=== PATIENT | male | born 1980 | race Caucasian/White ===

== ENCOUNTER 2018-10-14 13:26 | Inpatient (IN) ==
[2018-10-14] MEDS ORDERED: IOPAMIDOL 100 ML BOTTLE IV ONE (13:27)
[2018-10-14] MEDS ORDERED: LACTATED RINGERS 1,000 ML IV ONE ×2 (14:34→19:11)
[2018-10-14] MEDS ORDERED: VANCOMYCIN 1,000 MG in 0.9 % SODIUM CHLORIDE 250 ML IV ONE (14:34)
[2018-10-14] MEDS ORDERED: PIPERACILLIN SODIUM/TAZOBACTAM 3.375 GM in DEXTROSE 5% IN WATER 50 ML IV ONE (14:34)
--- NOTE | 2018-10-14 14:41 | Emergency Department Note ---
Weakness HPI - General Chief complaint: Weakness Stated complaint: Sepsis, positive blood cultures Time Seen by Provider: 10/14/18 14:34 Source: patient Mode of arrival: ambulatory Limitations: no limitations - History of Present Illness HPI Narrative: Patient was seen on 10/12/18 for cellulitis of his left hand and wrist secondary to IV drug abuse was to be admitted for sepsis and thrombocytopenia. The haircutter was consulted and he would consult. Patient however signed out AMA he was to be admitted to [facility]. Blood cultures came back positive for gram-positive [employer] and we did a call out TO POLICE and he has returned. Patient was given Zosyn and vancomycin . rates the pain in his arm is a 10/10. His vancomycin is being given at this timeTemperature is 97.9 the pulse initially 111 has come down to 99 respiratory rate 16 blood pressure is 100/57 pulse ox is breathing at 97% rates the pain is a 10/10. Patient now states he is willing to be admitted - Related Data Home Medications Medication Instructions Recorded Confirmed No Known Home Meds 10/12/18 10/14/18 Allergies Allergy/AdvReac Type Severity Reaction Status Date / Time meperidine [From Demerol] Allergy Unknown Verified 10/14/18 13:27 Review of Systems All systems ED: reviewed and negative except as stated. Constitutional: Reports: fever, chills Gastrointestinal: Reports: abdominal pain Musculoskeletal: Reports: as per HPI, joint swelling (Left arm wrist), joint pain Neurological: Reports: weakness Past Medical History - Past Medical History [facility] Narrative: All Active Problems Cellulitis (Acute) Hyponatremia (Acute) Sepsis (Acute) Thrombocytopenia (Acute) Surgical history ED: Reports: appendectomy Family history: Reports: non-contributory - Social History smoking status: Former smoker Alcohol use: Reports: Occasionally Drug use: Reports: marijuana, methamphetamine, IVDU Physical Exam Limitations: no limitations General appearance: lethargic Head: atraumatic, normocephalic Eye: Present: normal appearance, PERRL ENT: normal exam, normal oropharynx, mucous membranes dry Neck: Present: normal inspection, full ROM, trachea midline Chest: Present: normal inspection, symmetric chest wall rise. Absent: tenderness Respiratory: Present: normal lung sounds bilaterally. Absent: respiratory distress, rales/crackles, wheezes Cardiovascular: Present: regular rate, normal rhythm Abdominal: Present: tenderness, normal bowel sounds. Absent: guarding, rebound , rigidity Shoulder: Present: normal inspection, full ROM Arm: Present: normal inspection, full ROM Elbow: Present: normal inspection, full ROM Forearm/Wrist: Present: tenderness (Left), swelling Hand: Present: tenderness (Left) Back: Present: normal inspection, full ROM Neurological: Present: alert, oriented X3, CN II-XII intact. Absent: motor sensory deficit Patient oriented to: Present: person, place, time Speech: Present: fluid speech Cranial nerves: EOM function (II, III, IV, ): Normal, facial sensation (V): Normal, facial palsy (VII): Normal, gag reflex (IX): Normal, spinal accessory function (XI): Normal, tongue deviation (XII): Normal Cerebellar function: finger to nose: Normal Motor strength - LUE: 5/5 Motor strength - RUE: 5/5 Motor strength - LLE: 5/5 Motor strength - RLE: 5/5 Upper motor neuron exam: Babinski sign: Absent bilaterally Sensory exam upper extremity: Normal: light touch Sensory exam lower extremity: Normal: light touch DTR: 2+: triceps (L), triceps (R) Psychiatric: Present: normal affect Course Vital Signs Temperature 97.9 F 10/14/18 13:27 Pulse Rate 111 H 10/14/18 13:27 Respiratory Rate 16 10/14/18 13:27 Blood Pressure 100/57 10/14/18 13:27 Pulse Oximetry (%) 97 10/14/18 13:27 Temperature 97.9 F 10/14/18 13:27 Pulse Rate 90 10/14/18 16:50 Respiratory Rate 17 10/14/18 16:50 Blood Pressure 95/58 10/14/18 16:50 Pulse Oximetry (%) 93 10/14/18 16:50 Weakness - MDM Narrative Medical decision making narrative: WBC of 6200 his platelet count is estimated to be approximately 50,000 increase him to 35,000 seen 2 days ago lactic is come down to 2.0 it was 3.82 days ago. Sodium is 126 it was 120 previously his liver function tests are normal but his alkaline phosphatase is 124. CT of the abdomen shows hepatosplenomegaly but no abscess been told resulted in patient to be admitted with diagnosis sepsis patient admits to IV drug abuse - Lab Data Result diagrams: 10/14/18 15:26 10/14/18 14:15 Lab Results 10/14/18 10/14/18 10/14/18 Range/Units 14:15 14:15 14:15 WBC TNP RBC TNP Hgb TNP Hct TNP MCV TNP MCH TNP MCHC TNP RDW TNP Plt Count TNP MPV TNP Total Counted TNP Seg Neutrophils % (38-78) % Band Neutrophils % Not Reportable Lymphocytes % (15-49) % Monocytes % (Manual) (1-12) % Eosinophils % (Manual) (0-7) % WBC Morphology (NORMAL) Vacuolated Neuts (NONE SEEN) Toxic Granulation (NONE SEEN) Platelet Estimate TNP RBC Morphology TNP VBG Lactic Acid (0.5-2.0) mmol/L Sodium 126 L (133-145) mmol/L Potassium 3.8 (3.3-5.1) mmol/L Chloride 90 L (96-108) mmol/L Carbon Dioxide 24 (22-30) mmol/L Anion Gap 12.0 (8-16) BUN 15 (6-20) mg/dl Creatinine 0.7 (0.7-1.2) mg/dl GFR Calculation 121 Glucose 140 H (70-105) mg/dL Calcium 7.8 L (8.6-10.4) mg/dl Total Bilirubin 0.8 (0.0-1.0) mg/dL AST 17 (0-37) U/l ALT 10 (0-40) U/l Alkaline Phosphatase 124 H (39-117) U/L Total Protein 5.3 L (5.9-8.4) gm/dL Albumin 2.3 L (3.2-5.2) gm/dL Globulin 3.0 (2.2-3.7) gm/dL Albumin/Globulin Ratio 0.8 L (1.0-2.3) Urine Color Urine Appearance Urine pH (5.0-9.0) Ur Specific [place] (1.000-1.035) Urine Protein (NEG) mg/dL Urine Glucose (UA) (NEG) mg/dL Urine Ketones (NEG) mg/dL Urine Occult Blood (<0.03) mg/dL Urine Nitrate (NEG) Urine Bilirubin (NEG) mg/dL Urine Urobilinogen (NEG) mg/dL Ur Leukocyte Esterase (NEG) /uL Urine RBC (0-1) /hpf Urine WBC (0-4) /hpf Ur Squamous Epith Cells (0-4) /hpf Urine Bacteria (0) /hpf Urine Mucus (0) /hpf Ur Culture Indicated? 10/14/18 10/14/18 10/14/18 Range/Units 14:30 15:11 15:26 WBC 6.2 RBC 3.14 L Hgb 9.1 L Hct 27.0 L MCV 86.2 MCH 29.0 MCHC 33.6 RDW 14.3 Plt Count TNP MPV 10.8 H Total Counted 100 Seg Neutrophils % 86 H (38-78) % Band Neutrophils % 9 Lymphocytes % 2 L (15-49) % Monocytes % (Manual) 1 (1-12) % Eosinophils % (Manual) 2 (0-7) % WBC Morphology Abnorm A (NORMAL) Vacuolated Neuts 1+ A (NONE SEEN) Toxic Granulation 1+ A (NONE SEEN) Platelet Estimate Decreased A RBC Morphology Normal VBG Lactic Acid 2.0 (0.5-2.0) mmol/L Sodium (133-145) mmol/L Potassium (3.3-5.1) mmol/L Chloride (96-108) mmol/L Carbon Dioxide (22-30) mmol/L Anion Gap (8-16) BUN (6-20) mg/dl Creatinine (0.7-1.2) mg/dl GFR Calculation Glucose (70-105) mg/dL Calcium (8.6-10.4) mg/dl Total Bilirubin (0.0-1.0) mg/dL AST (0-37) U/l ALT (0-40) U/l Alkaline Phosphatase (39-117) U/L Total Protein (5.9-8.4) gm/dL Albumin (3.2-5.2) gm/dL Globulin (2.2-3.7) gm/dL Albumin/Globulin Ratio (1.0-2.3) Urine Color Yellow Urine Appearance Hazy Urine pH 6.0 (5.0-9.0) Ur Specific [place] 1.012 (1.000-1.035) Urine Protein Neg (NEG) mg/dL Urine Glucose (UA) Negative (NEG) mg/dL Urine Ketones Neg (NEG) mg/dL Urine Occult Blood 0.03 A (<0.03) mg/dL Urine Nitrate Neg (NEG) Urine Bilirubin Neg (NEG) mg/dL Urine Urobilinogen 4.0 A (NEG) mg/dL Ur Leukocyte Esterase Neg (NEG) /uL Urine RBC < 1 (0-1) /hpf Urine WBC 4 (0-4) /hpf Ur Squamous Epith Cells < 1 (0-4) /hpf Urine Bacteria Few A (0) /hpf Urine Mucus Few (0) /hpf Ur Culture Indicated? Yes Disposition Pt seen by ENGRAVER RUBBER/PA only: No Clinical Impression: Sepsis Qualifiers: Sepsis type: methicillin susceptible Staphylococcus aureus Qualified Code(s): A41.01 - Sepsis due to Methicillin susceptible Staphylococcus aureus Disposition: Xfer As Inpt ([facility]) Condition: Serious Referrals: No,PCP [Primary Care Provider] - Time of Disposition: 17:00
[2018-10-14] MEDS ORDERED: 0.9 % SODIUM CHLORIDE 1,000 ML IV ONE ×3 (14:49→16:53)
--- NOTE | 2018-10-14 14:50 | XRay Report ---
CLINICAL INFORMATION: Chest pain COMPARISON: 10/12/2018 FINDINGS: The heart size, mediastinum and pulmonary vessels are unremarkable. Mild bibasilar atelectasis noted. No sonny infiltrate. There are small bilateral pleural effusions. The bones and soft tissues are within normal limits. IMPRESSION: Minor bibasilar atelectasis. Small bilateral pleural effusions Interpreted and Authenticated by: Modesto Fischer 10/14/18
[2018-10-14] MEDS ORDERED: ONDANSETRON 4 MG/2 ML VIAL IV ONE (14:51)
[2018-10-14] MEDS: HYDROmorphone 2 MG/ML VIAL IV PRN ×2 (14:59→15:39)
[2018-10-14 15:26] LABS: ALT/SGPT 10 U/l (0-40); Albumin 2.3 gm/dL (3.2-5.2); Albumin/Globulin Ratio 0.8 (1.0-2.3); Alkaline Phosphatase 124 U/L (39-117); Blood Urea Nitrogen 15 mg/dl (6-20)
[2018-10-14 15:41] LABS: Appearance,Urine HAZY; Bacteria,Urine FEW /hpf (0); Bilirubin,Urine NEG (NEG); Color,Urine YELLOW; Glucose,Urine (UA) NEGATIVE (NEG); Leukocyte Esterase,Urine NEG /uL (NEG); Mucus,Urine FEW /hpf (0); Protein,Urine NEG (NEG); Specific Gravity,Urine 1.012 (1.000-1.035); Urine Blood 0.03 mg/dL (<0.03); Urine RBC < 1 /hpf (0-1); Urine Squamous Epithelial Cell < 1 /hpf (0-4); Urine WBC 4 /hpf (0-4)
[2018-10-14] MEDS ORDERED: HYDROmorphone 2 MG/ML VIAL IV ONE (16:19)
[2018-10-14 16:48] LABS: Band Neutrophils % 9 % (0-10); Eosinophils % (Manual) 2 % (0-7); Lymphocytes % 2 % (15-49); Monocytes % (Manual) 1 % (1-12); Platelet Estimate DECREASED (NORMAL); RBC Morphology NORMAL (NORMAL); Segmented Neutrophils % 86 % (38-78); Toxic Granulation 1+ (NONE SEEN)
[2018-10-14 16:49] LABS: Mean Cell Volume 86.2 fL (80.0-100.0); Mean Corpuscular HGB Conc 33.6 g/dL (31.0-36.0); RBC 3.14 M/mcL (4.50-5.90); Red Cell Distribution Width 14.3 % (11.5-14.5)
[2018-10-14] MEDS ORDERED: KETOROLAC 30 MG/ML VIAL IV ONE ×2 (17:21→19:11)
--- NOTE | 2018-10-14 17:52 | Internal Med History&Physical ---
Medical - H&P: HPI Patient information: Note initiated : 10/14/18 at 5:39 pm Service Date, if different from initiated Date: [] Patient: Juan Carlos Phan a 38 y/o M admitted on for Sepsis, positive blood cultures. Chief Complaint: [] History of present illness: Mr. Phan is a 38 year old M with h/o IVDA who presents to the ER after being called back to the ER for positive blood cultures The patient presented to the ER on the 12 of october, the patient had pain and redness on the left hand at that time, the patient blood work in the ER showed low platlets, wbc normal, elevated lactic acid, low sodium, he was had meth, opiates in his UDS, the patient was asked to be admitted to the hospital. He was given vanco and zosyn and was to be admitted at [facility] as he had platelet count of 24K (we do not have a piston maker here) The patient signed out AMA His blood cultures 2 bottles grew staph aureus and he was asked to come back to the hospital The patient admits to using heroin, he has now pain in the right side of the body, notes predominantly in the anterior chest wall, sternoclarvicular junction , and around the shoulder. Pain he rates as severe. Worse with activity and better with rest. He is afebrile on presentation, bp was normal, but later dropped to 90'systolic , despite 4L fluid boluses remains low, he also did get some pain meds labs show normal wbc, but left shift, low platelets, clumped, but assessed to be 50K, chemistry shows sodium 126, creat 0.7 Blood culture is mssa staph, he sensitive. The patient is being admitted to tele, to [facility] for further management The patient is very pleasant to talk to, sweet talking to myself, explaining how he wished to quit now , but wanted to be not in pain while in the hospital, dialudid did work for him in the past. The patient has been explained that we will use medication in reasonable does to help with pain, no IV pain meds will be given. He has verbalized understanding Review of systems: CONSTITUTIONAL: fever, chills, weight loss present. HEENT: Eyes: No visual loss, blurred vision, double vision or yellow sclerae. Ears, Nose, Throat: No hearing loss, sneezing, congestion, runny nose or sore throat. SKIN: No rash or itching. CARDIOVASCULAR: yes, right sided chest pain, no chest pressure or chest discomfort. No palpitations or edema. RESPIRATORY: No shortness of breath, cough or sputum. very tired GASTROINTESTINAL: No nausea, vomiting or diarrhea or constipation. No abdominal pain or blood in stools No Padma. (He did report abdominal pain to ER doc who ordered a CT Abdomen) GENITOURINARY: Denies Burning on urination. Blood in urine, or foul smelling urine NEUROLOGICAL: No headache, dizziness, syncope, paralysis, tremors, numbness or tingling in the extremities. No change in bowel or bladder control. MUSCULOSKELETAL: right shoulder/right clarvicular pain, no spine pain reported. HEMATOLOGIC: No bleeding or bruising. No enlarged nodes PSYCHIATRIC: No depression or anxiety. ENDOCRINOLOGIC: No reports of sweating, cold or heat intolerance. No polyuria or polydipsia. ALLERGIES: No hives, eczema or rhinitis. Skin: No rash, no jaundice, cyanosis or pallor. Medical - H&P: PMH Medical history: ? Asthma Surgical history: appendix club feet surgery Family history: reviewed and not pertinent Pertinent family history: grand mother with breast cancer Social history: lives with friend MAURICE smoker Medical - H&P: Meds Home Medications Medication Instructions Recorded Confirmed Type No Known Home Meds 10/12/18 10/14/18 History Allergies Allergy/AdvReac Type Severity Reaction Status Date / Time meperidine [From Demerol] Allergy Unknown Verified 10/14/18 13:27 Medical - H&P: Exam - Constitutional Vitals: Temp Pulse Resp BP Pulse Ox 97.5 F 97 H 17 94/55 99 10/14/18 17:28 10/14/18 17:20 10/14/18 16:50 10/14/18 17:20 10/14/18 17:20 Exam: GENERAL: Pt is think poorly kept, not in distress, [id number] VITAL SIGNS: Reviewed and as noted elsewhere. HEENT: Head is normocephalic and atraumatic. Extraocular muscles are intact. Pupils are equal, round, and reactive to light. Nares appeared normal. Mouth appears any without lesions. Mucous membranes are dry NECK: Normal to inspection, Supple, No lymphadenopathy or thyromegaly. LUNGS: Air entry equal on both sides, no wheezing, crackles or rhonchi noted. No accessory muscles of respiration HEART: Regular rate and rhythm normal, S1 and S2 heard, no Gallop, S3 or Rub Noted, systolic murmur mitral region3/6 ABDOMEN: Soft, nontender, and nondistended. Positive bowel sounds. hepatosplenomegaly was noted. EXTREMITIES: No cyanosis, clubbing, rash, lesions or edema. Pt reports tenderness on the right clavicle at the medial and lateral end. NEUROLOGIC: Cranial nerves II through XII are grossly intact. Motor and Sensory System Grossly Intact PSYCHIATRIC: Normal affect, Normal Mood. Appropriate Behavior. SKIN: No ulceration or wounds noted, No jaundice, multiple track valero on the hand and legs Medical - H&P: Reslt - Labs CBC & Chem 7: 10/14/18 15:26 10/14/18 14:15 Labs: Short CBC 10/14/18 10/14/18 Range/Units 14:15 15:26 WBC TNP 6.2 Hgb TNP 9.1 L Hct TNP 27.0 L Plt Count TNP TNP BMP 10/14/18 14:15 Sodium 126 L Potassium 3.8 Chloride 90 L Carbon Dioxide 24 BUN 15 Creatinine 0.7 Glucose 140 H Calcium 7.8 L Liver Function 10/14/18 Range/Units 14:15 Total Bilirubin 0.8 (0.0-1.0) mg/dL AST 17 (0-37) U/l ALT 10 (0-40) U/l Alkaline Phosphatase 124 H (39-117) U/L Albumin 2.3 L (3.2-5.2) gm/dL Urine 10/14/18 Range/Units 15:11 Urine Color Yellow Urine Appearance Hazy Urine pH 6.0 (5.0-9.0) Ur Specific [place] 1.012 (1.000-1.035) Urine Protein Neg (NEG) mg/dL Urine Glucose (UA) Negative (NEG) mg/dL Medical - H&P: A/P - Narrative A/P Narrative: A/P Bacteremia/MSSA- IVDA, he sensitive organism, start on anceph 2gms q8hrs, repeat blood cultures, HIV was reported as neg, check hep b and c Sepsis- Blood pressure is soft, he has received pain meds in ER, repeat fluid, monitor consider pressor support, get STAT Echo given concern for endocarditis, if severe MR noted, may need operative intervention. Thrombocytopenia- was 24 on the , clumpted platlets noted, approx 50 K today , get path smear, check b12, folate, tsh, splenomegaly could also be playing a role. fibirnogen was elevated and pt ,appt normal, doubt if DIC, LDH was neg too on the 13. Splenomegaly- Due to IVDA? outpatient follow up. Pneumonia- noted on abdominal CT, likely due to bacteremia, IV anceph should cover this Pain/shoulder/Clavicle- Get Chest CT to r/o any obvious lesions in the shoulder , clavicles or upper chest wall. Pain management- IV tylenol 1000mg tid, ketorolac and po dilaudid, I have explained the patient that IV dilaudid would not be given by me at this time DVT hep sq Diet Regular Full code.
[2018-10-14 18:05] LABS: C-Reactive Protein 9.6 mg/dl (0.0-0.8)
[2018-10-14 18:08] LABS: Hepatitis B Surface Antigen NEGATIVE (NEGATIVE)
[2018-10-14 18:09] LABS: Hepatitis B Surface Antibody NEGATIVE (NEGATIVE)
[2018-10-14 18:16] LABS: Vitamin B12 678.1 pg/ml (232-1245)
--- NOTE | 2018-10-14 18:41 | Cat Scan Report ---
CLINICAL INFORMATION: Sepsis COMPARISON: None TECHNIQUE: 0.625 mm axial slices were obtained from the lung apices through the bases without intravenous contrast. 2.5 mm Sagittal, coronal and axial reformatted images were processed and reviewed at bone, lung and soft tissue windows. 7 mm axial MIP images were also reconstructed to optimize pulmonary nodule detection.The exam was performed using radiation dose optimization techniques including, but not limited to, automated exposure control, adjustment of the mA and/or kV according to patient size and use of iterative reconstruction technique. FINDINGS: Mediastinal windows show the noncontrasted pulmonary arteries and thoracic aorta be normal in contour and caliber.The heart is normal in size. A few borderline enlarged lymph nodes noted in the perihilar and lower paratracheal region are seen. There is moderate edema in the mediastinal fat. Esophagus is grossly normal. Lung windows show moderate sized patchy infiltrates in both posterior lower lobes and small bilateral pleural effusions. There is a vague 14 mm nodule superior segment of the right lower lobe which is likely inflammatory. Bones and soft tissues the chest wall are normal IMPRESSION: 1. Moderate patchy infiltrates at both posterior lower lobes. A 13 mm pleural-based nodule in the superior segment of the right lower lobe is likely inflammatory. Small bilateral pleural effusions. 2. Mild edema within the mediastinum - likely related to sepsis. Interpreted and Authenticated by: Modesto Fischer 10/14/18
[2018-10-14 18:51] LABS: Hepatitis C Virus Antibody REACTIVE (NEGATIVE)
[2018-10-14] MEDS ORDERED: NALOXONE HCL 0.4 MG/ML VIAL IV PRN (19:11)
--- NOTE | 2018-10-14 19:58 | Cat Scan Report ---
CLINICAL INFORMATION: Sepsis COMPARISON: None. TECHNIQUE: Following enteric contrast, 80 cc of Isovue-300 were injected intravenously, and 60 seconds later, 0.625 mm helical slices were obtained from the mid heart through the subtrochanteric regions. Following reconstruction, 2.5 mm sagittal, coronal and axial reformatted images were processed and reviewed at bone, lung and soft tissue windows. Five minutes later, 0.625 mm helical slices were obtained from the mid heart through the kidneys and viewed at soft tissue windows.The exam was performed using radiation dose optimization techniques including, but not limited to, automated exposure control, adjustment of the mA and/or kV according to patient size and use of iterative reconstruction technique. FINDINGS: Lung bases small bilateral pleural effusions. Moderate patchy infiltrates in both posterior lower lobes. Visualized heart is normal. Images should the abdomen show marked hepatosplenomegaly. There is also moderate edema in the portal triad regions. The gallbladder and bile ducts are normal in CBD is 5 mm. Both kidneys, adrenal glands, spleen, pancreas and aorta are unremarkable. There is a moderate edema throughout the mesentery and also moderate ascites. Images through the pelvis show prostate, seminal vesicles and urinary bladder to be normal. Stomach, small and large bowel are symmetrically dilated compatible with mild ileus. No abscess identified. Bone windows show no focal osseous abnormality. IMPRESSION: 1. Moderate hepatosplenomegaly. The differential diagnosis includes a wide variety of infection, malignancy such as lymphoma or leukemia, collagen vascular diseases and developing cirrhosis. 2. Moderate ascites and edema throughout the mesentery likely related to sepsis. 3. Small bilateral pleural effusions moderate patchy bilateral lower lobe infiltrates Interpreted and Authenticated by: Modesto Fischer 10/14/18
[2018-10-14] MEDS: HEPARIN 5,000 UNIT/ML VIAL SQ SCH (21:26)
[2018-10-14] MEDS: ACETAMINOPHEN 1,000 MG/100 ML BOTTLE IV SCH ×2 (21:28→21:48)
[2018-10-14] MEDS: ceFAZolin 1 GM VIAL IV SCH (21:28)
[2018-10-14] MEDS: 0.9 % SODIUM CHLORIDE 10 ML SYRINGE IV SCH (21:28)
[2018-10-15] MEDS: 0.9 % SODIUM CHLORIDE 10 ML SYRINGE IV SCH ×4 (05:38→22:02)
[2018-10-15] MEDS: ceFAZolin 1 GM VIAL IV SCH ×3 (05:39→22:01)
[2018-10-15 05:44] LABS: ALT/SGPT 9 U/l (0-40); Albumin/Globulin Ratio 0.7 (1.0-2.3); Alkaline Phosphatase 110 U/L (39-117); Bilirubin,Direct 0.3 mg/dL (0.0-0.3); Blood Urea Nitrogen 13 mg/dl (6-20); Gamma Glutamyl Transpeptidase 21 U/L (8-61); Uric Acid 4.6 mg/dL (2.5-8.0)
[2018-10-15 06:22] LABS: Erythrocyte Sedimentation Rate 16 mm/hr (0-15)
[2018-10-15 06:23] LABS: Basophils # (Auto) 0 K/mcL (0.0-0.3); Basophils % (Auto) 0.1 % (0.0-2.0); Eosinophils # (Auto) 0.1 K/mcL (0.0-0.7); Granulocytes % (Auto) 88.4 % (38.0-78.0); Lymphocytes # (Auto) 0.4 K/mcL (1.5-4.8); Lymphocytes % (Auto) 6.2 % (15.5-49.0); Mean Cell Volume 86.5 fL (80.0-100.0); Mean Corpuscular HGB Conc 33.9 g/dL (31.0-36.0); Mean Corpuscular Hemoglobin 29.4 pg (26.0-34.0); Monocytes # (Auto) 0.3 K/mcL (0.1-0.9); Monocytes % (Auto) 4.3 % (1.0-12.0); Platelet Count 35 K/mcL (140-440); RBC 3.24 M/mcL (4.50-5.90); Red Cell Distribution Width 14.4 % (11.5-14.5)
[2018-10-15] MEDS: KETOROLAC 15 MG/ML VIAL IV PRN ×3 (08:38→22:01)
[2018-10-15] MEDS: ACETAMINOPHEN 1,000 MG/100 ML BOTTLE IV SCH ×3 (09:47→20:16)
[2018-10-15] MEDS: HEPARIN 5,000 UNIT/ML VIAL SQ SCH (10:17)
[2018-10-15] MEDS: HYDROmorphone 2 MG TABLET PO PRN ×3 (10:52→20:12)
--- NOTE | 2018-10-15 14:05 | Internal Med Progress Note ---
Medical - PN: Subj Patient information: Note initiated : 10/15/18 at 1:46 pm Service Date, if different from initiated Date: [] Patient: Juan Carlos Phan a 38 y/o M admitted on 10/14/18 for Sepsis, positive blood cultures. Chief Complaint: [] Interval history: Mr. Phan is a 38 year old M with h/o IVDA who presents to the ER after being called back to the ER for positive blood cultures The patient presented to the ER on the 12 of october, the patient had pain and redness on the left hand at that time, the patient blood work in the ER showed low platlets, wbc normal, elevated lactic acid, low sodium, he was had meth, opiates in his UDS, the patient was asked to be admitted to the hospital. He was given vanco and zosyn and was to be admitted at [facility] as he had platelet count of 24K (we do not have a [employer] here) The patient signed out AMA His blood cultures 2 bottles grew staph aureus and he was asked to come back to the hospital The patient admits to using heroin, he has now pain in the right side of the body, notes predominantly in the anterior chest wall, sternoclarvicular junction , and around the shoulder. Pain he rates as severe. Worse with activity and better with rest. He is afebrile on presentation, bp was normal, but later dropped to 90'systolic , despite 4L fluid boluses remains low, he also did get some pain meds labs show normal wbc, but left shift, low platelets, clumped, but assessed to be 50K, chemistry shows sodium 126, creat 0.7 Blood culture is mssa staph, he sensitive. The patient is being admitted to tele, to this [facility] for further management The patient is very pleasant to talk to, sweet talking to myself, explaining how he wished to quit now , but wanted to be not in pain while in the hospital, dialudid did work for him in the past. The patient has been explained that we will use medication in reasonable does to help with pain, no IV pain meds will be given. He has verbalized understanding 10/15 Patient seen examined, no acute overnight issues, hemodynamically stable echo read pending, high suspicion for endocarditis He still complaints of pain in the right side of this upper chest, shoulder. CT chest was neg for acute pathology will get ct shoulder to evaluate this further pt still wanting more pain meds, no e/o any need for pain medication at this time I have explained to him that I would not be using IV pain medications as its not warranted. labs reviewed hep b neg, hep c positive, Pertinent ROS: Denies headache, dizziness Denies chest pain, palpitations Denies cough or shortness of breath Denies abdominal pain, nausea or vomiting. Right shoulder pain - Constitutional Vitals: Vital Signs Temp Pulse Resp BP Pulse Ox 99.4 F H 82 16 104/65 99 10/15/18 12:00 10/15/18 07:51 10/15/18 12:02 10/15/18 12:03 10/15/18 12:02 Period Temp Pulse Resp BP Sys/Brooke Pulse Ox Last 24 Hr 97.5 F-99.5 F 75-104 12-27 78-107/47-65 84-100 Intake and Output 10/14/18 10/15/18 10/15/18 21:59 05:59 13:59 Intake Total 4600 / 4600 350 / 350 880 / 880 Output Total 550 / 550 Balance 4050 / 4050 350 / 350 880 / 880 Weight 137 lb 0.96 oz Intake & Output: Intake & Output 10/14/18 10/15/18 10/15/18 21:59 05:59 13:59 Intake Total 4600 / 4600 350 / 350 880 / 880 Output Total 550 / 550 Balance 4050 / 4050 350 / 350 880 / 880 Weight 137 lb 0.96 oz Intake: IV 4600 / 4600 100 / 100 Sodium Chloride 0.9% 1,000 ml @ 3000 / 3000 Wide Open IV BOLUS ONE Rx#: [id number] Lactated Ringers 1,000 ml @ 233 / 233 Wide Open IV BOLUS ONE Rx#: [id number] Zosyn 3.375 gm In Dextrose 5% 50 / 50 in Water 50 ml @ 100 mls/hr IV ONCE ONE Rx#:[id number] Vancomycin 1,000 mg In Sodium 250 / 250 Chloride 0.9% 250 ml @ 250 mls/ hr IV ONCE ONE Rx#:[id number] Oral 250 / 250 880 / 880 Output: Void Amount 550 / 550 Other: Meal snack snack Lunch Percent of Meal Consumed 100% 100% 75% Feeding Ability Assist with Tray Set Up Assist with Tray Set Up Independent Urine Appearance Clear Urine Color Dark Yellow Urine Odor Normal Stool Size Small Stool Color Brown Stool Consistency Loose # Bowel Movements 1 Exam: Constitutional; Afebrile, cooperative, alert, not in distress. Respiratory system: Air Entry equal on both sides, No crackles or wheezing, no rhonchi. CVS- Rate rhythm regular, S1,S2 heard, no gallop, no rub. Abdomen- Soft nontender abdomen, no organomegaly, no tenderness, no guarding or rigidity, PRODUCT SCIENTIST- AOOx3, moving all extremities, no gross focal deficit noted. Medical - PN: Obj Da - Labs CBC & Chem 7: 10/15/18 04:00 10/15/18 04:00 Labs: Abnormal Lab Results 10/15/18 10/15/18 10/14/18 04:00 04:00 15:26 RBC 3.24 L 3.14 L Hgb 9.5 L 9.1 L Hct 28.0 L 27.0 L Plt Count 35 L* MPV 10.6 H 10.8 H Gran % 88.4 H Lymph % (Auto) 6.2 L Lymph # (Auto) 0.4 L Seg Neutrophils % 86 H Lymphocytes % 2 L WBC Morphology Abnorm A Vacuolated Neuts 1+ A Toxic Granulation 1+ A Platelet Estimate Decreased A ESR 16 H Sodium Chloride Glucose 122 H Calcium 7.8 L Alkaline Phosphatase C-Reactive Protein Total Protein 4.8 L Albumin 2.0 L Albumin/Globulin Ratio 0.7 L Urine Occult Blood Urine Urobilinogen Urine Bacteria 10/14/18 10/14/18 10/14/18 15:11 14:30 14:15 RBC Hgb Hct Plt Count MPV Gran % Lymph % (Auto) Lymph # (Auto) Seg Neutrophils % Lymphocytes % WBC Morphology Vacuolated Neuts Toxic Granulation Platelet Estimate ESR Sodium 126 L Chloride 90 L Glucose 140 H Calcium 7.8 L Alkaline Phosphatase 124 H C-Reactive Protein 9.6 H Total Protein 5.3 L Albumin 2.3 L Albumin/Globulin Ratio 0.8 L Urine Occult Blood 0.03 A Urine Urobilinogen 4.0 A Urine Bacteria Few A Meds: Medications Cefazolin Sodium (Ancef) 2 gm IV Q8H [facility] Last Admin: 10/15/18 05:39 Dose: 2 gm Hydromorphone HCl (Dilaudid) 2 mg PO Q4HP PRN PRN Reason: Severe Pain Last Admin: 10/15/18 10:52 Dose: 2 mg Acetaminophen (Ofirmev) 1,000 mg in 100 mls @ 200 mls/hr IV TID [facility] Last Admin: 10/15/18 09:47 Dose: 200 mls/hr Ketorolac Tromethamine (Toradol) 15 mg IV Q6HP PRN PRN Reason: Pain Stop: 10/16/18 17:23 Last Admin: 10/15/18 08:38 Dose: 15 mg Naloxone HCl (Narcan) 0.1 mg IV Q2MIN PRN PRN Reason: Opiate Reversal Ondansetron HCl (Zofran) 4 mg IV Q4HP PRN PRN Reason: Nausea And Vomiting Sodium Chloride (Saline Flush) 10 ml IV Q8 [facility] Last Admin: 10/15/18 05:38 Dose: 10 ml Medical - PN: A/P - Time Spent With Patient Total time spent is greater than 50% in coordination of care (as documented) at patient's floor/unit and/or counseling patient: - Narrative A/P Narrative: A/P A/P Bacteremia/MSSA- IVDA, he sensitive organism, start on anceph 2gms q8hrs, repeat blood cultures, HIV was reported as neg, hep b neg, hep c positive. Echo pending. hep C- Follow up as outpatient Sepsis- BP soft but stable, wbc normal, continue to monitor. Thrombocytopenia- was 24 on the 13th, clumpted platlets noted, 35 today path smear neg , b12, folate, tsh neg, splenomegaly could also be playing a role. fibirnogen was elevated and pt ,appt normal, doubt if DIC, LDH was neg too. Splenomegaly- Due to IVDA? outpatient follow up wit hematology Pneumonia- noted on abdominal CT, likely due to bacteremia, IV anceph should cover this, give mssa bactermia. Pain/shoulder/Clavicle- Get CT shoulder, CT chest was negative. true pain vs factitious symptoms for drug gain? Pain management- IV tylenol 1000mg tid, ketorolac and po dilaudid, I have explained the patient that IV dilaudid would not be warranted DVT hep sq Diet Regular Full code. Medical - PN: Qual - VTE Deep Vein Thrombosis/Pulmonary Embolism Present on Admission: No
--- NOTE | 2018-10-15 15:10 | Cat Scan Report ---
CLINICAL INFORMATION: Positive blood cultures evaluate for septic arthritis COMPARISON: None. TECHNIQUE: 0.625 helical slices were obtained through the right shoulder. Following reconstruction, sagittal, coronal axial reformatted images were processed and reviewed at bone and soft tissue windows FINDINGS: The acromioclavicular and glenohumeral joints are normal in width and alignment without arthritic change. There is no joint effusion. No osseous abnormality. Muscle and fascial planes are normal IMPRESSION: Normal Interpreted and Authenticated by: Modesto Fischer 10/15/18
--- NOTE | 2018-10-15 15:30 | Internal Med Progress Note ---
Medical - PN: Subj Patient information: Note initiated : 10/15/18 at 3:20 pm Service Date, if different from initiated Date: [] Patient: Juan Carlos Phan a 38 y/o M admitted on 10/14/18 for Sepsis, positive blood cultures. Chief Complaint: [] Interval history: Mr. Phan is a 38 year old M with h/o IVDA who presents to the ER after being called back to the ER for positive blood cultures The patient presented to the ER on the 12 of october, the patient had pain and redness on the left hand at that time, the patient blood work in the ER showed low platlets, wbc normal, elevated lactic acid, low sodium, he was had meth, opiates in his UDS, the patient was asked to be admitted to the hospital. 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 Pain he rates as severe. Worse with activity and better with rest. He is afebrile on presentation, bp was normal, but later dropped to 90'systolic , despite 4L fluid boluses remains low, he also did get some pain meds labs show normal wbc, but left shift, low platelets, clumped, but assessed to be 50K, chemistry shows sodium 126, creat 0.7 Blood culture is mssa staph, he sensitive. The patient is being admitted to tele, to this [facility] for further management The patient is very pleasant to talk to, sweet talking to myself, explaining how he wished to quit now , but wanted to be not in pain while in the hospital, dialudid did work for him in the past. The patient has been explained that we will use medication in reasonable does to help with pain, no IV pain meds will be given. He has verbalized understanding 10/15 Patient seen examined, no acute overnight issues, hemodynamically stable echo read pending, high suspicion for endocarditis He still complaints of pain in the right side of this upper chest, shoulder. CT chest was neg for acute pathology will get ct shoulder to evaluate this further pt still wanting more pain meds, no e/o any need for pain medication at this time I have explained to him that I would not be using IV pain medications as its not warranted. labs reviewed hep b neg, hep c positive - Constitutional Vitals: Vital Signs Temp Pulse Resp BP Pulse Ox 99.4 F H 82 16 104/65 99 10/15/18 12:00 10/15/18 07:51 10/15/18 12:02 10/15/18 12:03 10/15/18 12:02 Period Temp Pulse Resp BP Sys/Brooke Pulse Ox Last 24 Hr 97.5 F-99.5 F 75-100 13-27 78-107/47-65 84-100 Intake and Output 10/15/18 10/15/18 10/15/18 05:59 13:59 21:59 Intake Total 350 / 350 980 / 980 Balance 350 / 350 980 / 980 Intake & Output: Intake & Output 10/15/18 10/15/18 10/15/18 05:59 13:59 21:59 Intake Total 350 / 350 980 / 980 Balance 350 / 350 980 / 980 Intake: IV 100 / 100 100 / 100 Oral 250 / 250 880 / 880 Other: Meal snack Lunch Percent of Meal Consumed 100% 75% Feeding Ability Assist with Tray Set Up Independent Stool Size Small Stool Color Brown Stool Consistency Loose # Bowel Movements 1 Exam: General: Alert, Awake, No acute Distress Eyes/N/T: EOMI, Head/Neck: neck supple, CV: RRR, normal s1/s2, Pulm: Clear b/l, no wheezing/rhonchi/rales Abd: soft, nontender, +BS x4 Ext: no clubbing/cyanosis/edema Neuro: Alert, no focal deficits, moves all extremities, Skin: warm/dry Medical - PN: Obj Da - Labs CBC & Chem 7: 10/15/18 04:00 10/15/18 04:00 Labs: Abnormal Lab Results 10/15/18 10/15/18 10/14/18 04:00 04:00 15:26 RBC 3.24 L 3.14 L Hgb 9.5 L 9.1 L Hct 28.0 L 27.0 L Plt Count 35 L* MPV 10.6 H 10.8 H Gran % 88.4 H Lymph % (Auto) 6.2 L Lymph # (Auto) 0.4 L Seg Neutrophils % 86 H Lymphocytes % 2 L WBC Morphology Abnorm A Vacuolated Neuts 1+ A Toxic Granulation 1+ A Platelet Estimate Decreased A ESR 16 H Sodium Chloride Glucose 122 H Calcium 7.8 L Alkaline Phosphatase C-Reactive Protein Total Protein 4.8 L Albumin 2.0 L Albumin/Globulin Ratio 0.7 L Urine Occult Blood Urine Urobilinogen Urine Bacteria 10/14/18 10/14/18 10/14/18 15:11 14:30 14:15 RBC Hgb Hct Plt Count MPV Gran % Lymph % (Auto) Lymph # (Auto) Seg Neutrophils % Lymphocytes % WBC Morphology Vacuolated Neuts Toxic Granulation Platelet Estimate ESR Sodium 126 L Chloride 90 L Glucose 140 H Calcium 7.8 L Alkaline Phosphatase 124 H C-Reactive Protein 9.6 H Total Protein 5.3 L Albumin 2.3 L Albumin/Globulin Ratio 0.8 L Urine Occult Blood 0.03 A Urine Urobilinogen 4.0 A Urine Bacteria Few A Meds: Medications Cefazolin Sodium (Ancef) 2 gm IV Q8H [facility] Last Admin: 10/15/18 14:54 Dose: 2 gm Hydromorphone HCl (Dilaudid) 2 mg PO Q4HP PRN PRN Reason: Severe Pain Last Admin: 10/15/18 15:03 Dose: 2 mg Acetaminophen (Ofirmev) 1,000 mg in 100 mls @ 200 mls/hr IV TID [facility] Last Admin: 10/15/18 14:54 Dose: 200 mls/hr Ketorolac Tromethamine (Toradol) 15 mg IV Q6HP PRN PRN Reason: Pain Stop: 10/16/18 17:23 Last Admin: 10/15/18 08:38 Dose: 15 mg Naloxone HCl (Narcan) 0.1 mg IV Q2MIN PRN PRN Reason: Opiate Reversal Ondansetron HCl (Zofran) 4 mg IV Q4HP PRN PRN Reason: Nausea And Vomiting Sodium Chloride (Saline Flush) 10 ml IV Q8 [facility] Last Admin: 10/15/18 14:54 Dose: 10 ml Medical - PN: A/P - Time Spent With Patient Total time spent is greater than 50% in coordination of care (as documented) at patient's floor/unit and/or counseling patient: - Narrative A/P Narrative: A: *Bacteremia/MSSA in IVDA: likely endocarditis *Sepsis *Hep C- Follow up as outpatient *Thrombocytopenia (uknown baseline): -24 on the today path smear neg -b12/folate ok, tsh neg, splenomegaly could also be playing a role. fibirnogen was elevated and pt ,appt normal, doubt if DIC, LDH was neg too. *Splenomegaly- Due to IVDA? outpatient follow up wit hematology *Pneumonia- noted on abdominal CT, likely due to bacteremia *Pain/shoulder/Clavicle: CT chest and shoulder was negative. true pain vs factitious symptoms for drug gain? *Hyponatremia: resolved with IVF's P: -cont IV ancef -pending repeat BC -pending echo report - - -Pain management- IV tylenol 1000mg tid, ketorolac and po dilaudid, I have explained the patient that IV dilaudid would not be warranted - -ppx: SCD's while PLTS <50k Medical - PN: Qual - VTE Deep Vein Thrombosis/Pulmonary Embolism Present on Admission: No
[2018-10-16] MEDS: HYDROmorphone 2 MG TABLET PO PRN ×4 (00:11→19:12)
[2018-10-16] MEDS: KETOROLAC 15 MG/ML VIAL IV PRN (04:10)
[2018-10-16] MEDS: 0.9 % SODIUM CHLORIDE 10 ML SYRINGE IV SCH ×6 (06:13→21:48)
[2018-10-16] MEDS: ceFAZolin 1 GM VIAL IV SCH ×3 (06:16→21:48)
[2018-10-16] MEDS: ONDANSETRON 4 MG/2 ML VIAL IV PRN ×2 (06:21→17:18)
[2018-10-16 06:35] LABS: ALT/SGPT 6 U/l (0-40); Albumin 1.8 gm/dL (3.2-5.2); Albumin/Globulin Ratio 0.6 (1.0-2.3); Alkaline Phosphatase 126 U/L (39-117); Bilirubin,Direct < 0.2 mg/dL (0.0-0.3); Blood Urea Nitrogen 20 mg/dl (6-20); Gamma Glutamyl Transpeptidase 26 U/L (8-61); Uric Acid 6.7 mg/dL (2.5-8.0)
[2018-10-16 07:23] LABS: Basophils # (Auto) 0 K/mcL (0.0-0.3); Basophils % (Auto) 0.1 % (0.0-2.0); Eosinophils # (Auto) 0.1 K/mcL (0.0-0.7); Eosinophils % (Auto) 1.6 % (0.0-7.0); Lymphocytes # (Auto) 0.6 K/mcL (1.5-4.8); Lymphocytes % (Auto) 6.7 % (15.5-49.0); Mean Cell Volume 87.6 fL (80.0-100.0); Mean Corpuscular HGB Conc 33.3 g/dL (31.0-36.0); Mean Corpuscular Hemoglobin 29.1 pg (26.0-34.0); Monocytes # (Auto) 0.4 K/mcL (0.1-0.9); Monocytes % (Auto) 4.6 % (1.0-12.0); Platelet Count 50 K/mcL (140-440); RBC 3.19 M/mcL (4.50-5.90); Red Cell Distribution Width 14.5 % (11.5-14.5)
--- NOTE | 2018-10-16 07:25 | Internal Med Progress Note ---
Medical - PN: Subj Patient information: Note initiated : 10/16/18 at 7:21 am Service Date, if different from initiated Date: [] Patient: Juan Carlos Phan a 38 y/o M admitted on 10/14/18 for Sepsis, positive blood cultures. Chief Complaint: [] Interval history: Mr. Phan is a 38 year old M with h/o IVDA who presents to the ER after being called back to the ER for positive blood cultures The patient presented to the ER on the 12 of october, the patient had pain and redness on the left hand at that time, the patient blood work in the ER showed low platlets, wbc normal, elevated lactic acid, low sodium, he was had meth, opiates in his UDS, the patient was asked to be admitted to the hospital. 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 Pain he rates as severe. Worse with activity and better with rest. He is afebrile on presentation, bp was normal, but later dropped to 90'systolic , despite 4L fluid boluses remains low, he also did get some pain meds labs show normal wbc, but left shift, low platelets, clumped, but assessed to be 50K, chemistry shows sodium 126, creat 0.7 Blood culture is mssa staph, he sensitive. The patient is being admitted to tele, to this [facility] for further management The patient is very pleasant to talk to, sweet talking to myself, explaining how he wished to quit now , but wanted to be not in pain while in the hospital, dialudid did work for him in the past. The patient has been explained that we will use medication in reasonable does to help with pain, no IV pain meds will be given. He has verbalized understanding 10/15 Patient seen examined, no acute overnight issues, hemodynamically stable echo read pending, high suspicion for endocarditis He still complaints of pain in the right side of this upper chest, shoulder. CT chest was neg for acute pathology will get ct shoulder to evaluate this further pt still wanting more pain meds, no e/o any need for pain medication at this time I have explained to him that I would not be using IV pain medications as its not warranted. labs reviewed hep b neg, hep c positive 10/16 Some headache and nausea this morning which is improved. Does have right-sided chest wall pain with coughing. Denies vomiting. States he wants to turn over new leaf, However, the other day he was asking his mother for a needle. Review of Systems: denies headache/fever/chills/nausea/vomiting/chest or abdominal pain/diarrhea. Otherwise see above. - Constitutional Vitals: Vital Signs Temp Pulse Resp BP Pulse Ox 98.2 F 93 H 16 117/75 93 10/16/18 04:22 10/16/18 04:22 10/16/18 04:22 10/16/18 04:22 10/16/18 04:22 Period Temp Pulse Resp BP Sys/Brooke Pulse Ox Last 24 Hr 98.1 F-99.4 F 75-93 -18 84-117/51-75 91-100 Intake and Output 10/15/18 10/16/18 10/16/18 21:59 05:59 13:59 Intake Total 560 / 560 1301 / 1301 210 / 210 Output Total 350 / 350 Balance 560 / 560 951 / 951 210 / 210 Weight 56.699 kg Intake & Output: Intake & Output 10/15/18 10/16/18 10/16/18 21:59 05:59 13:59 Intake Total 560 / 560 1301 / 1301 210 / 210 Output Total 350 / 350 Balance 560 / 560 951 / 951 210 / 210 Weight 56.699 kg Intake: IV 200 / 200 Oral 360 / 360 1301 / 1301 210 / 210 Output: Void Amount 350 / 350 Other: Meal snack Dinner Percent of Meal Consumed 100% 75% Feeding Ability Assist with Tray Set Up Assist with Tray Set Up Urine Appearance Clear Urine Color Bright Yellow Urine Odor Normal # Bowel Movements 0 Exam: General: Alert, Awake, No acute Distress Eyes/N/T: EOMI, Head/Neck: neck supple, CV: RRR, normal s1/s2, 2/6 SM Pulm: Clear b/l, no wheezing/rhonchi/rales Abd: soft, nontender, +BS x4 Ext: no clubbing/cyanosis/edema Neuro: Alert, no focal deficits, moves all extremities, Skin: warm/dry Medical - PN: Obj Da - Labs CBC & Chem 7: 10/16/18 04:00 10/16/18 04:00 Labs: Abnormal Lab Results 10/16/18 10/16/18 10/15/18 04:00 04:00 04:00 RBC Hgb Hct Plt Count MPV Gran % Lymph % (Auto) Lymph # (Auto) Seg Neutrophils % Lymphocytes % WBC Morphology Vacuolated Neuts Toxic Granulation Platelet Estimate ESR PT 16.0 H INR 1.3 H Sodium Chloride Glucose 135 H 122 H Calcium 7.6 L 7.8 L Phosphorus 2.6 L Alkaline Phosphatase 126 H C-Reactive Protein Total Protein 4.9 L 4.8 L Albumin 1.8 L 2.0 L Albumin/Globulin Ratio 0.6 L 0.7 L Urine Occult Blood Urine Urobilinogen Urine Bacteria 10/15/18 10/14/18 10/14/18 04:00 15:26 15:11 RBC 3.24 L 3.14 L Hgb 9.5 L 9.1 L Hct 28.0 L 27.0 L Plt Count 35 L* MPV 10.6 H 10.8 H Gran % 88.4 H Lymph % (Auto) 6.2 L Lymph # (Auto) 0.4 L Seg Neutrophils % 86 H Lymphocytes % 2 L WBC Morphology Abnorm A Vacuolated Neuts 1+ A Toxic Granulation 1+ A Platelet Estimate Decreased A ESR 16 H PT INR Sodium Chloride Glucose Calcium Phosphorus Alkaline Phosphatase C-Reactive Protein Total Protein Albumin Albumin/Globulin Ratio Urine Occult Blood 0.03 A Urine Urobilinogen 4.0 A Urine Bacteria Few A 10/14/18 10/14/18 14:30 14:15 RBC Hgb Hct Plt Count MPV Gran % Lymph % (Auto) Lymph # (Auto) Seg Neutrophils % Lymphocytes % WBC Morphology Vacuolated Neuts Toxic Granulation Platelet Estimate ESR PT INR Sodium 126 L Chloride 90 L Glucose 140 H Calcium 7.8 L Phosphorus Alkaline Phosphatase 124 H C-Reactive Protein 9.6 H Total Protein 5.3 L Albumin 2.3 L Albumin/Globulin Ratio 0.8 L Urine Occult Blood Urine Urobilinogen Urine Bacteria Meds: Medications Cefazolin Sodium (Ancef) 2 gm IV Q8H [facility] Last Admin: 10/16/18 06:16 Dose: 2 gm Hydromorphone HCl (Dilaudid) 2 mg PO Q4HP PRN PRN Reason: Severe Pain Last Admin: 10/16/18 06:05 Dose: 2 mg Acetaminophen (Ofirmev) 1,000 mg in 100 mls @ 200 mls/hr IV TID [facility] Last Infusion: 10/15/18 20:46 Dose: Infused Ketorolac Tromethamine (Toradol) 15 mg IV Q6HP PRN PRN Reason: Pain Stop: 10/16/18 17:23 Last Admin: 10/16/18 04:10 Dose: 15 mg Naloxone HCl (Narcan) 0.1 mg IV Q2MIN PRN PRN Reason: Opiate Reversal Ondansetron HCl (Zofran) 4 mg IV Q4HP PRN PRN Reason: Nausea And Vomiting Last Admin: 10/16/18 06:21 Dose: 4 mg Sodium Chloride (Saline Flush) 10 ml IV Q8 [facility] Last Admin: 10/16/18 06:13 Dose: 10 ml Medical - PN: A/P - Time Spent With Patient Total time spent is greater than 50% in coordination of care (as documented) at patient's floor/unit and/or counseling patient: - Narrative A/P Narrative: A: *Endocarditis w/MSSA: -echo with small vegetations on mitral and tricuspid valves *Bacteremia/MSSA in IVDA: 2/2 above *Sepsis: 2/2 above *Hep C: Follow up as outpatient *Thrombocytopenia ([facility] baseline): -24 on the , 35>50 -b12/folate ok, tsh neg, splenomegaly could also be playing a role. fibrinogen was elevated and pt ,appt normal, doubt if DIC, LDH was neg too. *Hepatosplenomegaly- likely, ?cirrhosis. outpatient follow up wit hematology *suspect cirrhosis: with h/o hep C. lab sequela and imaging suggestive *Pneumonia: noted on abdominal CT, likely due to bacteremia *Pain/shoulder/Clavicle: CT chest and shoulder was negative. true pain vs factitious symptoms for drug gain? *Hyponatremia: resolved with IVF's *anemia: stable *Substance abuse: P: -cont IV ancef -pending repeat BC -place PICC once repeat cx's then will need 6wks IV Abx - -Pain management- IV tylenol 1000mg tid, ketorolac and po dilaudid, I have explained the patient that IV dilaudid would not be warranted -CM for placement -ppx: SCD's while PLTS <50k Medical - PN: Qual - VTE Deep Vein Thrombosis/Pulmonary Embolism Present on Admission: No
[2018-10-16] MEDS: ACETAMINOPHEN 1,000 MG/100 ML BOTTLE IV SCH ×3 (09:33→21:46)
[2018-10-16] MEDS: hydrOXYzine 25 MG TABLET PO ONE ×2 (17:18→17:30)
[2018-10-16] MEDS: 0.9 % SODIUM CHLORIDE 500 ML IV SCH (19:05)
[2018-10-16] MEDS: diphenhydrAMINE 12.5 MG/5 ML ORAL.SOL PO SCH ×2 (22:02→23:53)
[2018-10-17] MEDS: ONDANSETRON 4 MG/2 ML VIAL IV PRN ×2 (02:18→06:31)
[2018-10-17] MEDS: HYDROmorphone 2 MG TABLET PO PRN ×6 (03:05→23:54)
[2018-10-17] MEDS: ceFAZolin 1 GM VIAL IV SCH ×3 (05:38→21:37)
[2018-10-17] MEDS: 0.9 % SODIUM CHLORIDE 10 ML SYRINGE IV SCH ×3 (05:39→22:12)
[2018-10-17] MEDS: 0.9 % SODIUM CHLORIDE 500 ML IV SCH (06:23)
[2018-10-17 06:59] LABS: ALT/SGPT < 5 U/l (0-40); Albumin 1.9 gm/dL (3.2-5.2); Albumin/Globulin Ratio 0.5 (1.0-2.3); Alkaline Phosphatase 181 U/L (39-117); Bilirubin,Direct 0.2 mg/dL (0.0-0.3); Blood Urea Nitrogen 29 mg/dl (6-20); Gamma Glutamyl Transpeptidase 29 U/L (8-61); Uric Acid 9.7 mg/dL (2.5-8.0)
[2018-10-17 07:24] LABS: Basophils # (Auto) 0 K/mcL (0.0-0.3); Basophils % (Auto) 0.1 % (0.0-2.0); Eosinophils # (Auto) 0 K/mcL (0.0-0.7); Eosinophils % (Auto) 0.1 % (0.0-7.0); Granulocytes % (Auto) 89.2 % (38.0-78.0); Lymphocytes % (Auto) 5.1 % (15.5-49.0); Mean Cell Volume 86.6 fL (80.0-100.0); Mean Corpuscular HGB Conc 33.5 g/dL (31.0-36.0); Monocytes # (Auto) 1.1 K/mcL (0.1-0.9); Monocytes % (Auto) 5.5 % (1.0-12.0); Platelet Count 111 K/mcL (140-440); RBC 3.89 M/mcL (4.50-5.90); Red Cell Distribution Width 14.9 % (11.5-14.5)
--- NOTE | 2018-10-17 07:24 | Internal Med Progress Note ---
Medical - PN: Subj Patient information: Note initiated : 10/17/18 at 7:19 am Service Date, if different from initiated Date: [] Patient: Juan Carlos Phan a 38 y/o M admitted on 10/14/18 for Sepsis, positive blood cultures. Chief Complaint: [] Interval history: Mr. Phan is a 38 year old M with h/o IVDA who presents to the ER after being called back to the ER for positive blood cultures The patient presented to the ER on the 12 of october, the patient had pain and redness on the left hand at that time, the patient blood work in the ER showed low platlets, wbc normal, elevated lactic acid, low sodium, he was had meth, opiates in his UDS, the patient was asked to be admitted to the hospital. 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 Pain he rates as severe. Worse with activity and better with rest. He is afebrile on presentation, bp was normal, but later dropped to 90'systolic , despite 4L fluid boluses remains low, he also did get some pain meds labs show normal wbc, but left shift, low platelets, clumped, but assessed to be 50K, chemistry shows sodium 126, creat 0.7 Blood culture is mssa staph, he sensitive. The patient is being admitted to tele, to this [facility] for further management The patient is very pleasant to talk to, sweet talking to myself, explaining how he wished to quit now , but wanted to be not in pain while in the hospital, dialudid did work for him in the past. The patient has been explained that we will use medication in reasonable does to help with pain, no IV pain meds will be given. He has verbalized understanding 10/15 Patient seen examined, no acute overnight issues, hemodynamically stable echo read pending, high suspicion for endocarditis He still complaints of pain in the right side of this upper chest, shoulder. CT chest was neg for acute pathology will get ct shoulder to evaluate this further pt still wanting more pain meds, no e/o any need for pain medication at this time I have explained to him that I would not be using IV pain medications as its not warranted. labs reviewed hep b neg, hep c positive 10/16 Some headache and nausea this morning which is improved. Does have right-sided chest wall pain with coughing. Denies vomiting. States he wants to turn over new leaf, However, the other day he was asking his mother for a needle. 10/17 Had some nausea vomiting overnight as well as diarrhea. With some abdominal crampy pain. Received Dilaudid with improvement. Review of Systems: denies headache/fever/chills/chest pain. Otherwise see above. - Constitutional Vitals: Vital Signs Temp Pulse Resp BP Pulse Ox 98.8 F 91 H 24 H 120/85 96 10/17/18 06:19 10/16/18 23:22 10/17/18 06:19 10/17/18 06:19 10/17/18 06:19 Period Temp Pulse Resp BP Sys/Brooke Pulse Ox Last 24 Hr 97.9 F-98.8 F 90-93 16-24 106-131/66-91 90-96 Intake and Output 10/16/18 10/17/18 10/17/18 21:59 05:59 13:59 Intake Total 610 / 610 1200 / 1200 Output Total 125 / 125 200 / 200 Balance 485 / 485 1000 / 1000 Weight 62.732 kg Intake & Output: Intake & Output 10/16/18 10/17/18 10/17/18 21:59 05:59 13:59 Intake Total 610 / 610 1200 / 1200 Output Total 125 / 125 200 / 200 Balance 485 / 485 1000 / 1000 Weight 62.732 kg Intake: IV 100 / 100 600 / 600 Sodium Chloride 0.9% 500 ml @ 500 / 500 50 mls/hr IV .Q10H [facility] Rx#: [id number] Oral 510 / 510 600 / 600 Output: Void Amount 125 / 125 # of times incontinent of urine 0 / 0 Emesis 200 / 200 Other: Urine Appearance Clear Urine Color Dark Yellow Dark Yellow Urine Odor Strong Stool Size Small Moderate Stool Color Brown Brown Stool Consistency Soft Loose Watery # Voids 1 1 # Bowel Movements 1 1 # of times incontinent of 0 Bowels Exam: General: Alert, Awake, No acute Distress Eyes/N/T: EOMI, Head/Neck: neck supple, CV: RRR, 2/6 SM Pulm: Clear b/l, no wheezing/rhonchi/rales Abd: soft, nontender, +BS x4 Ext: no clubbing/cyanosis/edema Neuro: Alert, no focal deficits, moves all extremities, Skin: warm/dry Medical - PN: Obj Da - Labs CBC & Chem 7: 10/17/18 03:42 10/17/18 03:42 Labs: Abnormal Lab Results 10/17/18 10/16/18 10/16/18 03:42 04:00 04:00 RBC Hgb Hct Plt Count MPV Gran % Lymph % (Auto) Lymph # (Auto) Seg Neutrophils % Lymphocytes % WBC Morphology Vacuolated Neuts Toxic Granulation Platelet Estimate ESR PT 16.0 H INR 1.3 H Sodium Chloride BUN 29 H Glucose 135 H Uric Acid 9.7 H Calcium 7.9 L 7.6 L Phosphorus 2.6 L Alkaline Phosphatase 181 H 126 H Lactate Dehydrogenase 300 H C-Reactive Protein Total Protein 4.9 L Albumin 1.9 L 1.8 L Globulin 4.0 H Albumin/Globulin Ratio 0.5 L 0.6 L Urine Occult Blood Urine Urobilinogen Urine Bacteria 10/16/18 10/15/18 10/15/18 04:00 04:00 04:00 RBC 3.19 L 3.24 L Hgb 9.3 L 9.5 L Hct 27.9 L 28.0 L Plt Count 50 L* 35 L* MPV 10.7 H 10.6 H Gran % 87.0 H 88.4 H Lymph % (Auto) 6.7 L 6.2 L Lymph # (Auto) 0.6 L 0.4 L Seg Neutrophils % Lymphocytes % WBC Morphology Vacuolated Neuts Toxic Granulation Platelet Estimate ESR 16 H PT INR Sodium Chloride BUN Glucose 122 H Uric Acid Calcium 7.8 L Phosphorus Alkaline Phosphatase Lactate Dehydrogenase C-Reactive Protein Total Protein 4.8 L Albumin 2.0 L Globulin Albumin/Globulin Ratio 0.7 L Urine Occult Blood Urine Urobilinogen Urine Bacteria 10/14/18 10/14/18 10/14/18 15:26 15:11 14:30 RBC 3.14 L Hgb 9.1 L Hct 27.0 L Plt Count MPV 10.8 H Gran % Lymph % (Auto) Lymph # (Auto) Seg Neutrophils % 86 H Lymphocytes % 2 L WBC Morphology Abnorm A Vacuolated Neuts 1+ A Toxic Granulation 1+ A Platelet Estimate Decreased A ESR PT INR Sodium Chloride BUN Glucose Uric Acid Calcium Phosphorus Alkaline Phosphatase Lactate Dehydrogenase C-Reactive Protein 9.6 H Total Protein Albumin Globulin Albumin/Globulin Ratio Urine Occult Blood 0.03 A Urine Urobilinogen 4.0 A Urine Bacteria Few A 10/14/18 14:15 RBC Hgb Hct Plt Count MPV Gran % Lymph % (Auto) Lymph # (Auto) Seg Neutrophils % Lymphocytes % WBC Morphology Vacuolated Neuts Toxic Granulation Platelet Estimate ESR PT INR Sodium 126 L Chloride 90 L BUN Glucose 140 H Uric Acid Calcium 7.8 L Phosphorus Alkaline Phosphatase 124 H Lactate Dehydrogenase C-Reactive Protein Total Protein 5.3 L Albumin 2.3 L Globulin Albumin/Globulin Ratio 0.8 L Urine Occult Blood Urine Urobilinogen Urine Bacteria Meds: Medications Cefazolin Sodium (Ancef) 2 gm IV Q8H [facility] Last Admin: 10/17/18 05:38 Dose: 2 gm Diphenhydramine HCl (Bendadryl) 25 mg PO QHS [facility] Stop: 10/18/18 21:01 Last Admin: 10/16/18 23:53 Dose: 25 mg Hydromorphone HCl (Dilaudid) 2 mg PO Q4HP PRN PRN Reason: Severe Pain Last Admin: 10/17/18 03:05 Dose: 2 mg Acetaminophen (Ofirmev) 1,000 mg in 100 mls @ 200 mls/hr IV TID [facility] Last Infusion: 10/16/18 22:16 Dose: Infused Naloxone HCl (Narcan) 0.1 mg IV Q2MIN PRN PRN Reason: Opiate Reversal Ondansetron HCl (Zofran) 4 mg IV Q4HP PRN PRN Reason: Nausea And Vomiting Last Admin: 10/17/18 06:31 Dose: 4 mg Sodium Chloride (Saline Flush) 10 ml IV Q8 [facility] Last Admin: 10/17/18 05:39 Dose: 10 ml Medical - PN: A/P - Time Spent With Patient Total time spent is greater than 50% in coordination of care (as documented) at patient's floor/unit and/or counseling patient: - Narrative A/P Narrative: A: *Endocarditis w/MSSA: -echo with small vegetations on mitral and tricuspid valves *Bacteremia (MSSA) in IVDA: 2/2 above *Sepsis: 2/2 above, resolving *Hep C: Follow up as outpatient *Thrombocytopenia (unknown baseline): -24 on the , 35>50>111 -b12/folate ok, tsh neg, splenomegaly could also be playing a role. fibrinogen was elevated and pt ,appt normal, doubt if DIC, LDH was neg too. *Hepatosplenomegaly: likely cirrhosis. outpatient follow up with hematology *suspect cirrhosis: with h/o hep C. lab sequela and imaging suggestive *Pneumonia: noted on abdominal CT, likely due to bacteremia *Pain/shoulder/Clavicle: CT chest and shoulder was negative. true pain vs factitious symptoms for drug gain? *Hyponatremia: resolved with IVF's *anemia: stable *Substance abuse: *Opioid withdrawal: *Severe Malnutrition: P: -cont IV ancef -pending repeat BC -place PICC once repeat cx's negative then will need 6wks IV Abx at facility - -Pain management- IV tylenol 1000mg tid, ketorolac and po dilaudid, I have explained the patient that IV dilaudid would not be warranted -Dietary consult -CM for placement -ppx: SCD's while PLTS <50k, Medical - PN: Qual - VTE Deep Vein Thrombosis/Pulmonary Embolism Present on Admission: No
[2018-10-17] MEDS ORDERED: 0.9 % SODIUM CHLORIDE 1,000 ML IV SCH (07:30)
[2018-10-17] MEDS ORDERED: HYDROmorphone 2 MG/ML VIAL IV ONE (08:17)
[2018-10-17] MEDS ORDERED: PROMETHAZINE 12.5 MG SUPP.RECT PR PRN (08:23)
[2018-10-17] MEDS: PANTOPRAZOLE 40 MG VIAL IV SCH (08:30)
[2018-10-17] MEDS: ACETAMINOPHEN 1,000 MG/100 ML BOTTLE IV SCH ×3 (09:01→21:36)
[2018-10-17] MEDS ORDERED: CAPSAICIN 0.025% CREAM.TOP 60GM TOPICAL PRN (09:20)
[2018-10-17 10:12] LABS: Band Neutrophils % 5 % (0-10); Eosinophils % (Manual) 2 % (0-7); Lymphocytes % 1 % (15-49); Monocytes % (Manual) 4 % (1-12); Platelet Estimate DECREASED (NORMAL); RBC Morphology NORMAL (NORMAL); Segmented Neutrophils % 88 % (38-78)
[2018-10-17] MEDS: PROCHLORPERAZINE 10 MG/2 ML VIAL IV PRN ×2 (11:28→15:58)
[2018-10-17 11:45] LABS: Mean Cell Volume 86.2 fL (80.0-100.0); Mean Corpuscular HGB Conc 33.6 g/dL (31.0-36.0); Platelet Count 136 K/mcL (140-440); RBC 3.79 M/mcL (4.50-5.90); Red Cell Distribution Width 14.7 % (11.5-14.5)
[2018-10-17 11:47] LABS: Band Neutrophils % 4 % (0-10); Lymphocytes % 5 % (15-49); Metamyelocytes % 1 % (0-0); Monocytes % (Manual) 6 % (1-12); Platelet Estimate DECREASED (NORMAL); RBC Morphology NORMAL (NORMAL); Segmented Neutrophils % 84 % (38-78); Toxic Granulation 1+ (NONE SEEN)
[2018-10-17] MEDS: ENOXAPARIN 40 MG/0.4 ML SYRINGE SQ SCH ×2 (13:07→16:44)
[2018-10-17] MEDS ORDERED: NAPROXEN 250 MG TABLET PO PRN (16:32)
[2018-10-17] MEDS: LORazepam 2 MG/ML VIAL IV PRN (20:09)
[2018-10-17] MEDS: diphenhydrAMINE 12.5 MG/5 ML ORAL.SOL PO SCH (22:13)
[2018-10-18] MEDS: HYDROmorphone 2 MG TABLET PO PRN ×5 (03:16→19:42)
[2018-10-18 05:36] LABS: Basophils # (Auto) 0.1 K/mcL (0.0-0.3); Eosinophils # (Auto) 0.1 K/mcL (0.0-0.7); Eosinophils % (Auto) 0.6 % (0.0-7.0); Granulocytes % (Auto) 83.9 % (38.0-78.0); Lymphocytes # (Auto) 1.2 K/mcL (1.5-4.8); Lymphocytes % (Auto) 8.6 % (15.5-49.0); Mean Cell Volume 86.8 fL (80.0-100.0); Mean Corpuscular HGB Conc 32.6 g/dL (31.0-36.0); Mean Corpuscular Hemoglobin 28.3 pg (26.0-34.0); Monocytes # (Auto) 0.9 K/mcL (0.1-0.9); Monocytes % (Auto) 5.9 % (1.0-12.0); Platelet Count 159 K/mcL (140-440); RBC 3.43 M/mcL (4.50-5.90); Red Cell Distribution Width 14.8 % (11.5-14.5)
[2018-10-18] MEDS ORDERED: cefTRIAXone 2 GM VIAL IM ONE (05:41)
[2018-10-18] MEDS: ceFAZolin 1 GM VIAL IV SCH ×3 (05:43→23:00)
[2018-10-18] MEDS: 0.9 % SODIUM CHLORIDE 10 ML SYRINGE IV SCH ×3 (05:47→23:56)
[2018-10-18 05:58] LABS: ALT/SGPT < 5 U/l (0-40); Albumin 1.9 gm/dL (3.2-5.2); Albumin/Globulin Ratio 0.5 (1.0-2.3); Alkaline Phosphatase 121 U/L (39-117); Bilirubin,Direct < 0.2 mg/dL (0.0-0.3); Blood Urea Nitrogen 30 mg/dl (6-20); Gamma Glutamyl Transpeptidase 21 U/L (8-61); Uric Acid 10.2 mg/dL (2.5-8.0)
[2018-10-18] MEDS ORDERED: LORazepam 1 MG TABLET PO ONE (06:39)
--- NOTE | 2018-10-18 07:23 | Internal Med Progress Note ---
Medical - PN: Subj Patient information: Note initiated : 10/18/18 at 7:19 am Service Date, if different from initiated Date: [] Patient: Juan Carlos Phan a 38 y/o M admitted on 10/14/18 for Sepsis, positive blood cultures. Chief Complaint: [] Interval history: Mr. Phan is a 38 year old M with h/o IVDA who presents to the ER after being called back to the ER for positive blood cultures The patient presented to the ER on the 12 of october, the patient had pain and redness on the left hand at that time, the patient blood work in the ER showed low platlets, wbc normal, elevated lactic acid, low sodium, he was had meth, opiates in his UDS, the patient was asked to be admitted to the hospital. 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 Pain he rates as severe. Worse with activity and better with rest. He is afebrile on presentation, bp was normal, but later dropped to 90'systolic , despite 4L fluid boluses remains low, he also did get some pain meds labs show normal wbc, but left shift, low platelets, clumped, but assessed to be 50K, chemistry shows sodium 126, creat 0.7 Blood culture is mssa staph, he sensitive. The patient is being admitted to tele, to this [facility] for further management The patient is very pleasant to talk to, sweet talking to myself, explaining how he wished to quit now , but wanted to be not in pain while in the hospital, dialudid did work for him in the past. The patient has been explained that we will use medication in reasonable does to help with pain, no IV pain meds will be given. He has verbalized understanding 10/15 Patient seen examined, no acute overnight issues, hemodynamically stable echo read pending, high suspicion for endocarditis He still complaints of pain in the right side of this upper chest, shoulder. CT chest was neg for acute pathology will get ct shoulder to evaluate this further pt still wanting more pain meds, no e/o any need for pain medication at this time I have explained to him that I would not be using IV pain medications as its not warranted. labs reviewed hep b neg, hep c positive 10/16 Some headache and nausea this morning which is improved. Does have right-sided chest wall pain with coughing. Denies vomiting. States he wants to turn over new leaf, However, the other day he was asking his mother for a needle. 10/17 Had some nausea vomiting overnight as well as diarrhea. With some abdominal crampy pain. Received Dilaudid with improvement. 10/18 Had some nausea vomiting diarrhea this morning Imodium started. C. difficile was negative. Wants IV Dilaudid. Powder found in his room this morning. Speculation it may have been the p.o. Dilaudid he was given. Review of Systems: denies headache/fever/chills. Otherwise see above. - Constitutional Vitals: Vital Signs Temp Pulse Resp BP Pulse Ox 99.5 F H 91 H 20 123/80 92 10/18/18 03:28 10/18/18 03:28 10/18/18 03:28 10/18/18 03:28 10/18/18 03:28 Period Temp Pulse Resp BP Sys/Brooke Pulse Ox Last 24 Hr 98.1 F-99.5 F 80-91 16-20 100-123/69-80 92-97 Intake and Output 10/17/18 10/18/18 10/18/18 21:59 05:59 13:59 Intake Total 100 / 100 1171 / 1171 Output Total 350 / 350 425 / 425 Balance -250 / -250 746 / 746 Weight 65.462 kg Intake & Output: Intake & Output 10/17/18 10/18/18 10/18/18 21:59 05:59 13:59 Intake Total 100 / 100 1171 / 1171 Output Total 350 / 350 425 / 425 Balance -250 / -250 746 / 746 Weight 65.462 kg Intake: IV 100 / 100 100 / 100 Oral 1071 / 1071 Output: Void Amount 350 / 350 425 / 425 Other: Urine Color Dark Yellow Dark Yellow Urine Odor Normal Stool Size Moderate Stool Color Brown Stool Consistency Loose Exam: General: Alert, Awake, No acute Distress Eyes/N/T: EOMI, Head/Neck: neck supple, CV: RRR, 2/6 SM Pulm: Clear b/l, no wheezing/rhonchi/rales Abd: soft, nontender, +BS x4 Ext: no clubbing/cyanosis/edema Neuro: Alert, no focal deficits, moves all extremities, Skin: warm/dry Medical - PN: Obj Da - Labs CBC & Chem 7: 10/18/18 03:30 10/18/18 03:30 Labs: Abnormal Lab Results 10/18/18 10/18/18 10/17/18 03:30 03:30 10:09 WBC 14.4 H 21.6 H RBC 3.43 L 3.79 L Hgb 9.7 L 11.0 L Hct 29.7 L 32.7 L RDW 14.8 H 14.7 H Plt Count 136 L MPV Gran % 83.9 H Lymph % (Auto) 8.6 L Gran # 12.1 H Lymph # (Auto) 1.2 L Lucas # (Auto) Seg Neutrophils % 84 H Lymphocytes % 5 L Metamyelocytes % 1 H WBC Morphology Abnorm A Toxic Granulation 1+ A Platelet Estimate Decreased A PT INR BUN 30 H Glucose Uric Acid 10.2 H Calcium 7.6 L Phosphorus 5.2 H Alkaline Phosphatase 121 H Lactate Dehydrogenase 297 H Total Protein 5.5 L Albumin 1.9 L Globulin Albumin/Globulin Ratio 0.5 L Prealbumin Triglycerides 169 H 10/17/18 10/17/18 10/17/18 08:01 03:42 03:42 WBC RBC Hgb Hct RDW Plt Count MPV Gran % Lymph % (Auto) Gran # Lymph # (Auto) Lucas # (Auto) Seg Neutrophils % 88 H Lymphocytes % 1 L Metamyelocytes % WBC Morphology Toxic Granulation Platelet Estimate Decreased A PT INR BUN 29 H Glucose Uric Acid 9.7 H Calcium 7.9 L Phosphorus Alkaline Phosphatase 181 H Lactate Dehydrogenase 300 H Total Protein Albumin 1.9 L Globulin 4.0 H Albumin/Globulin Ratio 0.5 L Prealbumin 3.6 L Triglycerides 10/17/18 10/16/18 10/16/18 03:42 04:00 04:00 WBC 20.1 H RBC 3.89 L Hgb 11.3 L Hct 33.7 L RDW 14.9 H Plt Count 111 L MPV 10.8 H Gran % 89.2 H Lymph % (Auto) 5.1 L Gran # 17.9 H Lymph # (Auto) 1.0 L Lucas # (Auto) 1.1 H Seg Neutrophils % Lymphocytes % Metamyelocytes % WBC Morphology Toxic Granulation Platelet Estimate PT 16.0 H INR 1.3 H BUN Glucose 135 H Uric Acid Calcium 7.6 L Phosphorus 2.6 L Alkaline Phosphatase 126 H Lactate Dehydrogenase Total Protein 4.9 L Albumin 1.8 L Globulin Albumin/Globulin Ratio 0.6 L Prealbumin Triglycerides 10/16/18 04:00 WBC RBC 3.19 L Hgb 9.3 L Hct 27.9 L RDW Plt Count 50 L* MPV 10.7 H Gran % 87.0 H Lymph % (Auto) 6.7 L Gran # Lymph # (Auto) 0.6 L Lucas # (Auto) Seg Neutrophils % Lymphocytes % Metamyelocytes % WBC Morphology Toxic Granulation Platelet Estimate PT INR BUN Glucose Uric Acid Calcium Phosphorus Alkaline Phosphatase Lactate Dehydrogenase Total Protein Albumin Globulin Albumin/Globulin Ratio Prealbumin Triglycerides Meds: Medications Capsaicin (Zostrix) 1 dose TOPICAL QIDP PRN PRN Reason: Muscle Pain Cefazolin Sodium (Ancef) 2 gm IV Q8H [facility] Last Admin: 10/18/18 05:43 Dose: Not Given Diphenhydramine HCl (Bendadryl) 25 mg PO QHS [facility] Stop: 10/18/18 21:01 Last Admin: 10/17/18 22:13 Dose: Not Given Enoxaparin Sodium (Lovenox) 40 mg SQ DAILY [facility] Last Admin: 10/17/18 16:44 Dose: Not Given Hydromorphone HCl (Dilaudid) 2 mg PO Q4HP PRN PRN Reason: Severe Pain Last Admin: 10/18/18 06:41 Dose: 2 mg Acetaminophen (Ofirmev) 1,000 mg in 100 mls @ 200 mls/hr IV TID [facility] Last Infusion: 10/17/18 22:12 Dose: Infused Lorazepam (Ativan) 1 mg IV Q8HP PRN PRN Reason: ANXIETY/SEDATION Last Admin: 10/17/18 20:09 Dose: 1 mg Naloxone HCl (Narcan) 0.1 mg IV Q2MIN PRN PRN Reason: Opiate Reversal Naproxen (Naprosyn) 500 mg PO BIDCC PRN PRN Reason: Pain Ondansetron HCl (Zofran) 4 mg IV Q4HP PRN PRN Reason: Nausea And Vomiting Last Admin: 10/17/18 06:31 Dose: 4 mg Pantoprazole Sodium (Protonix) 40 mg IV QAMAC [facility] Last Admin: 10/17/18 08:30 Dose: 40 mg Prochlorperazine Edisylate (Compazine) 5 mg IV Q4-6HP PRN PRN Reason: Nausea And Vomiting Last Admin: 10/17/18 15:58 Dose: 5 mg Promethazine HCl (Phenergan) 12.5 mg AL Q4-6HP PRN PRN Reason: Nausea And Vomiting Sodium Chloride (Saline Flush) 10 ml IV Q8 [facility] Last Admin: 10/18/18 05:47 Dose: Not Given Medical - PN: A/P - Time Spent With Patient Total time spent is greater than 50% in coordination of care (as documented) at patient's floor/unit and/or counseling patient: - Narrative A/P Narrative: A: *Endocarditis w/MSSA: -echo with small vegetations on mitral and tricuspid valves *Bacteremia (MSSA) in IVDA: 2/2 above *Sepsis: 2/2 above, resolving *Hep C: Follow up as outpatient *Thrombocytopenia (unknown baseline): -24 on the , 35>50>111 -b12/folate ok, tsh neg, splenomegaly could also be playing a role. fibrinogen was elevated and pt ,appt normal, doubt if DIC, LDH was neg too. *Hepatosplenomegaly: likely cirrhosis. outpatient follow up with hematology *suspect cirrhosis: with h/o hep C. lab sequela and imaging suggestive *Pneumonia: noted on abdominal CT, likely due to bacteremia *Pain/shoulder/Clavicle: CT chest and shoulder was negative. true pain vs factitious symptoms for drug gain? *Hyponatremia: resolved with IVF's *anemia: stable *Substance abuse: *Opioid withdrawal: *Severe Malnutrition: P: -cont IV ancef -pending repeat BC -place PICC once repeat cx's negative then will need 6wks IV Abx at facility> may not be an option as he might not build to placement facility. May need to look at alternatives such as one-time dose of long-acting antibiotic with oral antibiotics to finish. -prn ativan, PO opioid -Pain management- IV tylenol 1000mg tid, ketorolac and po dilaudid, I have explained the patient that IV dilaudid would not be warranted -Dietary consult -CM for placement -ppx: lovenox, Medical - PN: Qual - VTE Deep Vein Thrombosis/Pulmonary Embolism Present on Admission: No
[2018-10-18] MEDS: cefTRIAXone 1 GM VIAL ONE ×2 (07:50→08:38)
[2018-10-18] MEDS: PANTOPRAZOLE 40 MG VIAL IV SCH (07:53)
[2018-10-18] MEDS: ACETAMINOPHEN 1,000 MG/100 ML BOTTLE IV SCH ×3 (09:21→23:00)
[2018-10-18] MEDS: ENOXAPARIN 40 MG/0.4 ML SYRINGE SQ SCH (09:22)
[2018-10-18] MEDS: LOPERAMIDE 2 MG CAPSULE PO PRN (09:23)
[2018-10-18] MEDS ORDERED: METHADONE 5 MG TABLET PO ONE (09:40)
--- NOTE | 2018-10-18 10:24 | Discharge Summary ---
Medical - DS: Prov Patient information: Note initiated : 10/18/18 at 10:23 am Service Date, if different from initiated Date: [] Patient: Juan Carlos Phan 38 y/o M admitted on 10/14/18 for Sepsis, positive blood cultures. Chief Complaint: [] Date of admission: 10/14/18 19:00 Discharge date: 10/19/18 Primary care physician: PCP No Consults: 10/14/18 Consult to Physician [CONS] Stat Comment: Consulting Provider: Vaughn Conley Reason For Exam: Physician to Consult Medical - DS: Meds - Discharge Medications Prescriptions: Methadone [Dolophine] 5 mg PO DAILY #1 tab Oritavancin Diphosphate [Orbactiv] 1,200 mg IV WEEKLY #4 vial Active and Home Medications: Home Medications No Known Home Meds 10/12/18 [History Confirmed 10/14/18 Last Taken Unknown] Home Medications Oritavancin Diphosphate [Orbactiv] 1,200 mg IV WEEKLY #4 vial 10/18/18 [Rx Last Taken Unknown] Methadone [Dolophine] 5 mg PO DAILY #1 tab 10/19/18 [Rx Last Taken Unknown] Medical - DS: Hosp Hospital course: Mr. Phan is a 38 year old M Mr. Phan is a 38 year old M with h/o IVDA who presents to the ER after being called back to the ER for positive blood cultures The patient presented to the ER on the 12 of october, the patient had pain and redness on the left hand at that time, the patient blood work in the ER showed low platlets, wbc normal, elevated lactic acid, low sodium, he was had meth, opiates in his UDS, the patient was asked to be admitted to the hospital. He was given vanco and zosyn and was to be admitted at [facility] as he had platelet count of 24K (we do not have a body line finisher here) The patient signed out AMA His blood cultures 2 bottles grew staph aureus and he was asked to come back to the hospital The patient admits to using heroin, he has now pain in the right side of the body, notes predominantly in the anterior chest wall, sternoclarvicular junction , and around the shoulder. Pain he rates as severe. Worse with activity and better with rest. He is afebrile on presentation, bp was normal, but later dropped to 90'systolic , despite 4L fluid boluses remains low, he also did get some pain meds labs show normal wbc, but left shift, low platelets, clumped, but assessed to be 50K, chemistry shows sodium 126, creat 0.7 Blood culture is mssa staph, he sensitive. The patient is being admitted to tele, to this hospital for further management The patient is very pleasant to talk to, sweet talking to myself, explaining how he wished to quit now , but wanted to be not in pain while in the hospital, dialudid did work for him in the past. The patient has been explained that we will use medication in reasonable does to help with pain, no IV pain meds will be given. He has verbalized understanding 10/15 Patient seen examined, no acute overnight issues, hemodynamically stable echo read pending, high suspicion for endocarditis He still complaints of pain in the right side of this upper chest, shoulder. CT chest was neg for acute pathology will get ct shoulder to evaluate this further pt still wanting more pain meds, no e/o any need for pain medication at this time I have explained to him that I would not be using IV pain medications as its not warranted. labs reviewed hep b neg, hep c positive 10/16 Some headache and nausea this morning which is improved. Does have right-sided chest wall pain with coughing. Denies vomiting. States he wants to turn over new leaf, However, the other day he was asking his mother for a needle. 10/17 Had some nausea vomiting overnight as well as diarrhea. With some abdominal crampy pain. Received Dilaudid with improvement. 10/18 Had some nausea vomiting diarrhea this morning Imodium started. C. difficile was negative. Wants IV Dilaudid. Powder found in his room this morning. Speculation it may have been the p.o. Dilaudid he was given. Patient with multiple episodes of inappropriate behavior, including: -self-administering an IV medication- a nurse had administered half of it then turned around to check the pump when the pt then immediately pushed the remainder. -Another nurse found a pile of white powder on a piece of paper in his room. ? could this have been he PO dilaudid that he may have spit out and crushed? -Continues to ask for IV dilaudid and liquid ativan. -Refusing dvt ofloxacin -was digging in sharps container -he asked his mom to bring him a needle. -see nurses notes for additional details and episodes. He is creating an unsafe environment. We are unable to place him at any facility. He is unsafe to go home with a PICC line. He is a difficult stick and having him come in 3 times a day for Ancef is not feasible. Will give him a dose of long-acting IV Orbactiv tomorrow prior to discharge. And will set up weekly Orbactiv infusions for another 4 weeks minimum and will set up an appt with Dr. Sylvester when he returns from out of town next week. Discharge diagnosis: Endocarditis MSSA sepsis hepatitis C thrombus cytopenia pneumonia substance Secondary discharge diagnosis: Substance abuse opiate withdrawal severe malnutrition - Time Spent with Patient Total time spent providing and/or coordinating discharge services: Greater than 30 minutes Medical - DS: Exam - Constitutional Vitals: Vital Signs Temp Pulse Pulse Resp BP BP Pulse Ox 10/18/18 08:00 98.7 F 20 124/75 124/75 98 10/18/18 03:28 99.5 F H 91 H 20 123/80 92 10/18/18 00:02 98.2 F 16 115/71 10/17/18 19:51 88 95 10/17/18 19:46 98.2 F 87 16 111/77 94 10/17/18 17:03 98.1 F 80 20 107/73 94 10/17/18 11:37 99.1 F H 80 100/69 97 Intake and Output 10/17/18 10/18/18 10/18/18 21:59 05:59 13:59 Intake Total 100 / 100 1171 / 1171 1180 / 1180 Output Total 350 / 350 425 / 425 Balance -250 / -250 746 / 746 1180 / 1180 Intake: IV 100 / 100 100 / 100 100 / 100 Oral 1071 / 1071 1080 / 1080 Output: Void Amount 350 / 350 425 / 425 Other: Urine Color Dark Yellow Dark Yellow Urine Odor Normal Stool Size Moderate Small Stool Color Brown Brown Yellow Stool Consistency Loose Liquid Watery # Bowel Movements 1 # of times incontinent of 1 Bowels Weight 65.462 kg Medical - DS: Data Labs on day of discharge: Labs from last 24 hours 10/18/18 10/18/18 10/17/18 03:30 03:30 10:09 WBC 14.4 H 21.6 H RBC 3.43 L 3.79 L Hgb 9.7 L 11.0 L Hct 29.7 L 32.7 L MCV 86.8 86.2 MCH 28.3 29.0 MCHC 32.6 33.6 RDW 14.8 H 14.7 H Plt Count 159 136 L MPV 9.3 9.8 Gran % 83.9 H Lymph % (Auto) 8.6 L [place] % (Auto) 5.9 Eos % (Auto) 0.6 Baso % (Auto) 1.0 Gran # 12.1 H Lymph # (Auto) 1.2 L [place] # (Auto) 0.9 Eos # (Auto) 0.1 Baso # (Auto) 0.1 Total Counted 100 Seg Neutrophils % 84 H Band Neutrophils % 4 Lymphocytes % 5 L Monocytes % (Manual) 6 Metamyelocytes % 1 H WBC Morphology Abnorm A Toxic Granulation 1+ A Platelet Estimate Decreased A RBC Morphology Normal Sodium 138 Potassium 4.4 Chloride 104 Carbon Dioxide 24 Anion Gap 10.0 BUN 30 H Creatinine 1.0 GFR Calculation 96 Glucose 101 Uric Acid 10.2 H Calcium 7.6 L Phosphorus 5.2 H Magnesium 2.4 Total Bilirubin 0.3 Direct Bilirubin < 0.2 GGT 21 AST 10 ALT < 5 Alkaline Phosphatase 121 H Lactate Dehydrogenase 297 H Total Protein 5.5 L Albumin 1.9 L Globulin 3.6 Albumin/Globulin Ratio 0.5 L Triglycerides 169 H Preliminary micro results at discharge 10/14/18 21:50 Blood Culture - Preliminary Blood 10/14/18 04:00 Blood Culture - Preliminary Blood Staphylococcus aureus 10/16/18 08:35 Blood Culture - Preliminary Blood 10/16/18 08:30 Blood Culture - Preliminary Blood Medical - DS: A/P - Patient/Caregiver Discharge Instructions Activity: increase activity as tolerated Diet: Regular Diet Additional Instructions: Follow-up with PCP in 3-7 days Prescriptions: Methadone [Dolophine] 5 mg PO DAILY #1 tab Oritavancin Diphosphate [Orbactiv] 1,200 mg IV WEEKLY #4 vial - Follow up Plan Follow up with: No,PCP [Primary Care Provider] - David Sylvester MD [Physician] - Disposition: Home, Self-Care Prognosis: Serious Rehab Potential: Fair I certify that the patient requires SNF services: Yes Medical - DS: Qual - VTE Deep Vein Thrombosis/Pulmonary Embolism Present on Admission: No
[2018-10-18] MEDS: LORazepam 2 MG/ML VIAL IV PRN (19:43)
[2018-10-18] MEDS: diphenhydrAMINE 12.5 MG/5 ML ORAL.SOL PO SCH (23:52)
[2018-10-19] MEDS: HYDROmorphone 2 MG TABLET PO PRN ×3 (00:20→12:42)
[2018-10-19 03:58] LABS: Basophils # (Auto) 0.1 K/mcL (0.0-0.3); Basophils % (Auto) 0.8 % (0.0-2.0); Eosinophils # (Auto) 0.2 K/mcL (0.0-0.7); Eosinophils % (Auto) 2.1 % (0.0-7.0); Granulocytes % (Auto) 82.2 % (38.0-78.0); Lymphocytes % (Auto) 9.3 % (15.5-49.0); Mean Cell Volume 86.6 fL (80.0-100.0); Mean Corpuscular HGB Conc 33.5 g/dL (31.0-36.0); Monocytes # (Auto) 0.6 K/mcL (0.1-0.9); Monocytes % (Auto) 5.6 % (1.0-12.0); Platelet Count 165 K/mcL (140-440); RBC 3.15 M/mcL (4.50-5.90); Red Cell Distribution Width 14.5 % (11.5-14.5)
[2018-10-19 04:21] LABS: ALT/SGPT < 5 U/l (0-40); Albumin 1.8 gm/dL (3.2-5.2); Albumin/Globulin Ratio 0.5 (1.0-2.3); Alkaline Phosphatase 84 U/L (39-117); Bilirubin,Direct < 0.2 mg/dL (0.0-0.3); Blood Urea Nitrogen 20 mg/dl (6-20); Gamma Glutamyl Transpeptidase 20 U/L (8-61); Uric Acid 6.9 mg/dL (2.5-8.0)
[2018-10-19] MEDS ORDERED: cefTRIAXone 1 GM VIAL ONE (05:39)
[2018-10-19] MEDS: ceFAZolin 1 GM VIAL IV SCH ×2 (05:57→12:43)
[2018-10-19] MEDS: 0.9 % SODIUM CHLORIDE 10 ML SYRINGE IV SCH (05:57)
[2018-10-19] MEDS ORDERED: cefTRIAXone 2 GM VIAL IM ONE (06:00)
[2018-10-19] MEDS: LORazepam 2 MG/ML VIAL IV PRN (06:46)
[2018-10-19] MEDS: PANTOPRAZOLE 40 MG VIAL IV SCH (08:07)
[2018-10-19] MEDS: ACETAMINOPHEN 1,000 MG/100 ML BOTTLE IV SCH (08:24)
[2018-10-19] MEDS: ENOXAPARIN 40 MG/0.4 ML SYRINGE SQ SCH (08:44)
[2018-10-19] MEDS ORDERED: WATER IV ONE (09:00)
[2018-10-19] MEDS ORDERED: DEXTROSE 5% IV ONE (09:00)
[2018-10-19] MEDS ORDERED: ORITAVANCIN DIPHOSPHATE IV ONE (09:00)
[2018-10-19] MEDS: LOPERAMIDE 2 MG CAPSULE PO PRN (12:43)
== END 2018-10-19 13:30 | disposition home or self-care (01) | DRG 871 ==
LOC: ED 13:26 → ICU 19:00
PROVIDERS: ADMIT Internal Medicine; ATTEND Internal Medicine
CPT/HCPCS: 87324; 87449; 97167; 99223; 99231; J0131; J0690; J0696; J0780; J1170; J1644; J1650; J1885; J2060; J2405; J2407; J2543; J3370; J7030; J7040; J7050; J7060; J7070; J7120; Q9967